=== PATIENT | female | born 1995 | race Two or more races ===

== ENCOUNTER 2022-05-26 21:55 | Emergency (ER) | payer OTHER ==
[~2022-05-26] VITALS: Ht 167.6 cm; Wt 59.0 kg
== END 2022-05-26 22:45 | disposition home or self-care (01) ==
LOC: ER 21:55
DX: M54.2 Cervicalgia (principal); M54.6 Pain in thoracic spine; M54.50 Low back pain, unspecified

== ENCOUNTER → 2022-06-08 | Emergency (ER) | payer OTHER ==
[~2022-06-08] VITALS: Ht 167.6 cm; Wt 59.0 kg
== END | disposition home or self-care (01) ==
LOC: ER 16:15
DX: B34.9 Viral infection, unspecified (principal); R05.9 Cough, unspecified; R50.9 Fever, unspecified; R53.81 Other malaise; Z20.822 Contact with and (suspected) exposure to COVID-19